=== PATIENT | male | born 1975 | race Caucasian/White ===

== ENCOUNTER 2018-01-04 19:24 | Emergency (ER) | payer SELFPAY ==
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
[2018-01-04 19:42] VITALS: PULSE 85; RESP 16; TEMP 98.1; O2SAT 94
[2018-01-04 22:06] VITALS: BP 136/79
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
== END 2018-01-04 22:04 | disposition home or self-care (01) ==
DX: S09.90XA Unspecified injury of head, initial encounter (principal); S02.641A Fracture of ramus of right mandible, initial encounter for closed fracture; S29.9XXA Unspecified injury of thorax, initial encounter; V19.9XXA Pedal cyclist (driver) (passenger) injured in unspecified traffic accident, initial encounter; Y92.410 Unspecified street and highway as the place of occurrence of the external cause; Y93.55 Activity, bike riding

== ENCOUNTER 2019-04-04 13:45 | Observation (INO) | payer OTHER ==
[2019-04-04] MEDS ORDERED: LORazepam 2 MG/ML INJ IM ONE (14:21)
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
[2019-04-04] MEDS ORDERED: ceFAZolin 2 GM/DEXTROSE 100 ML IV ONE (15:01)
[2019-04-04] MEDS ORDERED: TDAP ADULT 0.5 ML INJ (BOOSTRIX) IM ONE (15:02)
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
[2019-04-04] MEDS ORDERED: ceFAZolin 1 GM/5 ML SYR ONE (18:12)
[2019-04-04] MEDS ORDERED: BUPIVACAINE 0.5% 30 ML SDV ONE (18:12)
[2019-04-04] MEDS ORDERED: MIDAZOLAM 2 MG/2 ML VIAL IVP ONE (18:18)
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
[2019-04-04] MEDS ORDERED: MIDAZOLAM 2 MG/2 ML VIAL ONE (18:24)
[2019-04-04] MEDS ORDERED: PROPOFOL 200 MG/20 ML VIAL ONE (18:29)
[2019-04-04] MEDS ORDERED: fentaNYL 100 MCG/2 ML INJ ONE (18:29)
[2019-04-04] MEDS ORDERED: PROMETHAZINE HCL 25 MG/ML INJ IVP PRN ×2 (19:46→19:58)
[2019-04-04] MEDS ORDERED: NALOXONE HCL 0.4 MG/ML INJ IVP PRN (19:46)
[2019-04-04] MEDS ORDERED: fentaNYL 100 MCG/2 ML INJ IVP PRN (19:46)
[2019-04-04] MEDS ORDERED: DEXAMETHASONE 4 MG/ML VIAL IVP PRN (19:46)
[2019-04-04] MEDS ORDERED: METOCLOPRAMIDE 10 MG/2 ML VIAL IVP PRN (19:58)
[2019-04-04] MEDS ORDERED: PROMETHAZINE HCL 25 MG SUPPR PR PRN (19:58)
[2019-04-04] MEDS ORDERED: TEMAZEPAM 15 MG CAP PO PRN (19:58)
[2019-04-04] MEDS ORDERED: ONDANSETRON DISINTEGRATING 4 MG TAB PO PRN (19:58)
[2019-04-04] MEDS ORDERED: ONDANSETRON 4 MG/2 ML VIAL IVP PRN (19:58)
[2019-04-04] MEDS ORDERED: CYCLOBENZAPRINE 10 MG TAB PO PRN (19:58)
[2019-04-04] MEDS ORDERED: diphenhydrAMINE 25 MG CAP PO PRN (19:58)
[2019-04-04] MEDS ORDERED: DIPHENOXYLATE/ATROPINE LOMOTIL 1 TAB PO PRN (19:58)
[2019-04-04] MEDS ORDERED: LR 1,000 ML IV SCH ×2 (20:00)
--- NOTE | 2019-04-04 20:06 | POSTANESTH ---
Post Anesthetic Evaluation Cardiovascular Status: Normal, Stable Respiratory Status: Normal, Stable Level of Consciousness/Mental Status: Can Participate in Eval Pain Control: Adequate, Prn Tx Ordered Nausea/Vomiting Control: Adequate, Prn Tx Ordered Complications Possibly Related to Anesthesia: None Noted
--- NOTE | 2019-04-04 20:44 | GOP ---
[f rep st] OPERATIVE REPORT DATE OF OPERATION: 04/04/2019 SURGEON: Avelino Dickey MD ANESTHESIA: General. PREOPERATIVE DIAGNOSIS: Comminuted intra-articular fracture of middle and distal phalanges with exte nsion into the distal interphalangeal articulation (open). POSTOPERATIVE DIAGNOSIS: Comminuted intra-articular fracture of middle and distal phalanges with ext ension into the distal interphalangeal articulation (open). PROCEDURE PERFORMED: Open reduction and internal fixation, left 5th finger, middle and distal phalan ges with intra-articular extension. FINDINGS: DESCRIPTION OF PROCEDURE: The patient was taken to the operating room, administered general anesthes ia, and placed in supine position. The left upper extremity was prepped and draped in normal sterile fashion. The area of open incision was debrided. Thorough lavage was performed with approximately 5000 cc of saline solution with Ancef 2 g within each 1000 cc. Pinning was then performed with a dylon gitudinal pin shish kabobbing the comminuted distal phalanx. This was then taken across the joint. There was an intercondylar fracture through the distal aspect of the middle phalanx; this was transve rsely pinned. A dorsal pin was then driven from dorsal to volar across the fracture, through the dis penelope interphalangeal articulation. We were eventually able to get good fixation and reasonable alignm ent. Thorough lavage was again performed with saline. The pins were cut to the appropriate length, and the distal pin was bent. The laceration was closed with interrupted 5-0 nylon sutures. A steril e compression dressing was applied, followed by ulnar gutter splint. The patient tolerated the proce dure well and was transferred back to Recovery in stable condition. COMPLICATIONS: None. COMPLICATIONS: None. /[id number]/MODL
[2019-04-04] MEDS: ceFAZolin 2 GM/DEXTROSE 100 ML IV SCH (21:18)
[2019-04-04] MEDS: ACETAMINOPHEN 325 MG TAB PO SCH (23:26)
[2019-04-04] MEDS: FAMOTIDINE 20 MG TAB PO SCH (23:28)
[2019-04-04] MEDS: oxyCODONE IR 5 MG TAB PO PRN (23:28)
[2019-04-05] MEDS: oxyCODONE IR 5 MG TAB PO PRN ×4 (03:01→21:27)
[2019-04-05] MEDS: ceFAZolin 2 GM/DEXTROSE 100 ML IV SCH ×3 (05:08→21:28)
[2019-04-05] MEDS: ACETAMINOPHEN 325 MG TAB PO SCH ×3 (05:59→17:23)
--- NOTE | 2019-04-05 10:21 | SOAPPROG ---
SOAP Progress Note Assessment/Plan: Assessment: Stable from ortho standpoint Plan: Warrants psych and social service evaluation. Ortho to follow hand injury with followup films and suture removal in 10 days. Will Continue IV antibiotic until DC then oral keflex for next week as wound had dirt in it, 04/05/19 10:18 04/05/19 10:21 Subjective: "I am done with [facility], and need to get to [facility]" Hand hurts but tolerable Objective: Vital Signs Temp Pulse Resp BP Pulse Ox 36.9 C 59 L 16 123/76 H 94 04/05/19 04:51 04/05/19 04:51 04/05/19 04:51 04/05/19 04:51 04/05/19 04:51 Laboratory Results 04/05/19 05:00 04/04/19 04/05/19 04/06/19 05:59 05:59 05:59 Intake Total 1999 350 Output Total 605 Balance 1395 350 VSS, Afebrile CSMT ok ICD10 Worksheet Patient Problems: Problems Problem Status Onset Open fracture of finger of left hand Acute Bipolar 1 disorder Acute Psychosis Acute
[2019-04-05] MEDS: FAMOTIDINE 20 MG TAB PO SCH ×2 (10:37→21:27)
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
[2019-04-05] MEDS ORDERED: LORazepam 1 MG TAB PO PRN (22:27)
[2019-04-05] MEDS ORDERED: OLANZapine 5 MG TAB PO PRN (22:28)
[2019-04-06] MEDS: ACETAMINOPHEN 325 MG TAB PO SCH ×4 (00:23→17:28)
[2019-04-06] MEDS: ceFAZolin 2 GM/DEXTROSE 100 ML IV SCH ×3 (05:43→21:25)
[2019-04-06] MEDS: FAMOTIDINE 20 MG TAB PO SCH ×2 (11:16→21:26)
[2019-04-06] MEDS: oxyCODONE IR 5 MG TAB PO PRN ×2 (11:29→21:25)
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
--- NOTE | 2019-04-06 12:46 | SOAPPROG ---
SOAP Progress Note Assessment/Plan: Assessment: POD # 3 s/p ORIF 4th finger Plan: Continue IV abx. Hakeem daley completed and he is not eligible for inpatient psych admitt Discussed with Leidy MORRIS. She will arrange evaluation for recit placement tomorrow. Continue to keep dressing intact. Non-weight bearing of affected hand If approved for bed placement tomorrow, may likely discharge then Will continue IV abx until discharge and then take oral Keflex. Any questions or concerns please reach out to Dr. Noble MD 04/06/19 12:42 Subjective: Patient denies any SOB, CP, N/V. Was not very pleasant this AM and wasnt in the mood to "chat" Objective: Vital Signs Temp Pulse Resp BP Pulse Ox 37.0 C 67 16 131/81 H 95 04/06/19 11:15 04/06/19 11:15 04/06/19 11:15 04/06/19 11:15 04/06/19 11:15 Laboratory Results 04/06/19 04:30 04/05/19 04/06/19 04/07/19 05:59 05:59 05:59 Intake Total 1999 3045 Output Total 605 1250 700 Balance 1395 1795 -700 PE Dressing intact. Wiggles other fingers well. ICD10 Worksheet Patient Problems: Problems Problem Status Onset Open fracture of finger of left hand Acute Bipolar 1 disorder Acute Psychosis Acute
--- NOTE | 2019-04-06 15:03 | ASMTCMCOM ---
CM Note CM Note Notes: CM called P requesting application for respite bed. [facility] reports Respite program is now the [facility] ([phone]) and the only way of applying for it is by speaking with them first. CM left them a message requesting call back [facility]. CM to follow. Date Signed: 04/06/2019 03:02 PM Electronically Signed By:SHANE Crawford
--- NOTE | 2019-04-06 17:27 | ASMTCMCOM ---
CM Note CM Note Notes: CM heard back from Sanjay at [facility] in their Crisis support department ([phone]). Sanjay is willing to send an government sales manager tomorrow to evaluate pt for an Acute Treatment Unit referral or a Crisis Stabilization Unit both of which are a step down from Inpatient Behavioral Health and a step up from a Respite bed. Pt did agree to a respite bed, however Sanjay felt pt was not appropriate for that level of care as pt would need to share a room, be able to manage his psychiatric symptoms and medications on his own. Sanjay wants confirmation from pt that he is interested in either of those two levels of care and willing to talk to a [facility] government sales manager before Sanjay sends one. Those units don't require med compliance but they can be supportive in terms of group work and long term while pt's wound is healing and pt is taking oral abx. Pt expressed to Behavioral Health RN today that he has done psychiatric treatment in the past and is not interested in psychiatric medications. Pt has a rapport with Danielle Zepeda and with LAWRENCE Mayorga. Tierra is willing to discuss options with pt in the morning and report back to CM on his decision. If pt is not agreeable, [facility] resp[facility] bed in a hotel may be an option or keeping pt inpatient until wound is healed enough to sleep in a tent. [employer] has been notified of pt's need to be screened for Medicaid and he was open to this. CM to follow. D/C Plan: TBD Date Signed: 04/06/2019 05:26 PM Electronically Signed By:Leidy Mary. LAWRENCE
[2019-04-07] MEDS: ACETAMINOPHEN 325 MG TAB PO SCH ×3 (00:30→14:25)
[2019-04-07] MEDS: ceFAZolin 2 GM/DEXTROSE 100 ML IV SCH ×2 (05:30→14:25)
--- NOTE | 2019-04-07 08:31 | SOAPPROG ---
SOAP Progress Note Assessment/Plan: Assessment: Stable from ortho standpoint Plan psych and social service evaluation is ongoing. Placement beining worked on. Ortho to follow hand injury with followup films and suture removal in 7 days. Will Continue IV antibiotic until DC then oral keflex for next week as wound had dirt in it, 04/05/19 10:18 04/05/19 10:21 04/07/19 08:28 04/07/19 08:30 Subjective: Pain is tolerable Objective: Vital Signs Temp Pulse Resp BP Pulse Ox 36.9 C 55 L 16 126/69 H 92 04/07/19 08:00 04/07/19 08:00 04/07/19 08:00 04/07/19 08:00 04/07/19 08:00 Laboratory Results 04/06/19 04:30 04/06/19 04/07/19 04/08/19 05:59 05:59 05:59 Intake Total 3045 3165 Output Total 1250 3075 125 Balance 1795 90 -125 VSS Afeb Pins OK CSMT ok ICD10 Worksheet Patient Problems: Problems Problem Status Onset Open fracture of finger of left hand Acute Bipolar 1 disorder Acute Psychosis Acute
[2019-04-07] MEDS: FAMOTIDINE 20 MG TAB PO SCH (09:56)
[2019-04-07] MEDS: oxyCODONE IR 5 MG TAB PO PRN (11:10)
[2019-04-07] MEDS ORDERED: HYDROCODONE/APAP 5/325 TAB PO PRN (15:42)
[2019-04-07 16:14] VITALS: BP 115/70
--- NOTE | 2019-04-07 16:53 | ASMTLACE ---
[place] Length of stay for Answers: 4-6 days current admission Acuity / Level of Answers: No Care: Did the patient have an inpatient admission? Comorbidities - select Answers: Diabetes (uncontrolled or all that apply controlled) # of Emergency department Answers: 1-2 visits in the last 6 months Social determinants Answers: History of substance abuse (ETOH, street drugs, prescription drugs, etc.) Homelessness (street, jail) History of trauma (PTSD, child abuse, domestic violence, etc.) Mental health diagnosis (anxiety, depression, pers onality disorders, etc.) Lack of community resources and/or lack of social support (no pcp, lives alone, transportation, edin d) Score: 22 Date Signed: 04/07/2019 04:53 PM Electronically Signed By:CARLYN Farnsworth
--- NOTE | 2019-04-07 16:56 | ASMTCMCOM ---
CM Note CM Note Notes: Yi with [facility] crisis team completed on-site eval of pt, pt does not qualify for any [facility] program primarily due to no interest in any mental health treatment and unwillingness to cease marijuana use. Pt reports he is not interested in a hotel room paid for by [facility] (if approved) because he does not want to cease marijuana use. Pt states he would rather be on the streets. The floor receives a telephone call from Sgt Tiburcio Lugo [phone], states pt will need to be picked up by [employer] at d/c and taken directly to [facility]. Brittney reports they will not be able to fill pt prescriptions but if provided to PD they can take them medications to senior care with pt where he will have them administered. Pt Medicaid is pending, pt was screened by [employer] for Medicaid and his application was sent to [facility]. Pt meds were filled with [facility] via the Indigent Care program, CM order processing manager David approved the $40 charge. When pt meds are filled this CM notified dispatch who came to sisal picker pt. LAWRENCE Mayorga calling report to patricia BRAVO. Date Signed: 04/07/2019 04:55 PM Electronically Signed By:CARLYN Farnsworth
[2019-04-07] MEDS ORDERED: CEPHALEXIN 500 MG CAP PO SCH (18:00)
--- NOTE | 2019-04-12 07:14 | PDDCSUM ---
Discharge Summary Discharge Summary: ORTHOPEDIC DISCHARGE SUMMARY Admission Date: 04/03/19 Discharge Date: 04/07/19 DIAGNOSIS: Open Fracture left 4th Phalanx PROCEDURE: Irrigation/Debridement and Open Reduction Internal Fixation Left 4th Finger SURGEON: Dr. Avelino Dickey MD HOSPITAL COURSE Patient was admitted to hospital service for care. Surgery went well. His pain was monitored and well controlled. Discharge plan were difficult due to patient being homeless and no meeting certain psychiatric guidlines for Mental Health Inpatient care. He was on IV antibiotics during hospital course. He was ultimately discharge under the care of police, where he was transferred to [facility]. FOLLOWUP Patient should followup in 10-14 days at [facility] for post-op evaluation. However he [facility] if [facility] issues prevent. Jermaine Vega PA-C for attending Dr. Avelino Dickey
== END 2019-04-07 16:50 ==
LOC: EDUNIT# → F3N 16:41
PROVIDERS: ADMIT Orthopaedic Surgery Sports Medicine; ATTEND Orthopaedic Surgery Sports Medicine
PROC: 0PSV34Z Reposition Left Finger Phalanx with Internal Fixation Device, Percutaneous Approach (ICD-10-PCS; principal; 2019-04-04 18:15)
PROC: 0HQGXZZ Repair Left Hand Skin, External Approach (ICD-10-PCS; principal; 2019-04-04 18:15)
DX: S62.635B Displaced fracture of distal phalanx of left ring finger, initial encounter for open fracture (principal); S62.625B Displaced fracture of middle phalanx of left ring finger, initial encounter for open fracture; F22 Delusional disorders; Y35.093A Legal intervention involving other firearm discharge, suspect injured, initial encounter; Z59.0 Homelessness; Z23 Encounter for immunization
CPT/HCPCS: 80305; 82607-90; C1713; G0378; J0690; J2060; J2250; J2270; J2704; J3010

== ENCOUNTER 2019-04-14 22:37 | Emergency (ER) | payer OTHER | END 2019-04-14 23:49 | disposition home or self-care (01) ==